=== PATIENT | female | born 1975 | race African-American/Black ===

== ENCOUNTER 2017-02-15 19:34 | Emergency (ER) | payer OTHER ==
[2017-02-15 19:41] VITALS: BP 119/82; PULSE 80; TEMP 98.2; BMI 38.7
--- NOTE | 2017-02-15 19:50 | PDOC ---
History of Present Illness - General History Source: Patient Exam Limitations: No Limitations - History of Present Illness Initial Comments: 02/15/17 22:03 The patient is a 41 year old female, with significant past medical history of knee problems, who presents to the emergency department with, right knee numbness and pain beginning a week ago. She reports the pain to be bilateral initially and pain in left knee to resolve. She reports occasional heat from her right knee. She reports using an KRISTOFER bandage for the pain, without relief. She also claims to take Advil for her pain. She reports today the swelling to go to her ankles also. She also reports intermittent chest pain which has resolved. She claims just returning from a trip to [place], via motor vehicle. She reports her symptoms to have begun prior to her trip. She also reports a weight gain of 51lbs since June and is pursuing gastric lap band surgery. She denies recent fevers, chills, headache or dizziness. She denies recent nausea, vomit, diarrhea or constipation. She denies recent dysuria, frequency, urgency or hematuria. She denies any injury, unusual activity, or change in shoes. Allergies: NKA Past surgical history: None reported. Familial: Rheumatoid Arthritis (Tested for and no abnormal finding.) Social history: Nonsmoker. Denies EtOH use and recreational drug use. <Jessica Nunez - Last Filed: 02/15/17 22:02> <Lissa Cristobal - Last Filed: 02/16/17 03:25> - General Chief Complaint: Pain Stated Complaint: BILATERAL FEET,ANKLE SWELLING, ALANA KNEE PAIN Time Seen by Provider: 02/15/17 19:49 Past History <Jessica Nunez - Last Filed: 02/15/17 22:02> - Past Medical History COPD: No Other medical history: SEASONAL ALLERGIES, HERPES LEFT HAND - Suicide/Smoking/Psychosocial Hx Smoking History: Never smoked Have you smoked in the past 12 months: No Hx Alcohol Use: (social) Substance Use Type: None <Lissa Cristobal - Last Filed: 02/16/17 03:25> - Past Medical History Allergies/Adverse Reactions: Allergies Allergy/AdvReac Type Severity Reaction Status Date / Time No Known Allergies Allergy Verified 02/15/17 19:35 Home Medications: Ambulatory Orders Ketorolac Tromethamine [Toradol] 10 mg PO TID PRN #15 tablet 11/26/17 Levocetirizine Dihydrochloride [Xyzal] 5 mg PO HS 02/15/17 Montelukast Na [Singulair -] 10 mg PO HS 02/15/17 Valacyclovir HCl [Valtrex] 1,000 mg PO DAILY 02/15/17 Review of Systems - Review of Systems Able to Perform ROS?: Yes Comments:: 02/15/17 22:03 GENERAL/CONSTITUTIONAL: No fever or chills. No weakness. HEAD, EYES, EARS, NOSE AND THROAT: No change in vision. No ear pain or discharge. No sore throat. CARDIOVASCULAR: +Chest pain. No chest pain. RESPIRATORY: No cough, wheezing, or hemoptysis. GASTROINTESTINAL: No nausea, vomiting, diarrhea or constipation. GENITOURINARY: No dysuria, frequency, or change in urination. MUSCULOSKELETAL: +Knee Pain. +Knee Swelling. +Knee numbness. No joint swelling or pain. No neck or back pain. SKIN: No rash NEUROLOGIC: No headache, vertigo, loss of consciousness, or change in strength/ sensation. ENDOCRINE: No increased thirst. No abnormal weight change. HEMATOLOGIC/LYMPHATIC: No anemia, easy bleeding, or history of blood clots. ALLERGIC/IMMUNOLOGIC: No hives or skin allergy. Is the patient limited French proficient: Yes All Other Systems: Reviewed and Negative <Jessica Nunez - Last Filed: 02/15/17 22:02> *Physical Exam - Vital Signs Last Vital Signs Temp Pulse Resp BP Pulse Ox 98.2 F 80 18 119/82 99 02/15/17 19:35 02/15/17 19:35 02/15/17 19:35 02/15/17 19:35 02/15/17 19:35 - Physical Exam Comments: 02/15/17 22:04 GENERAL: The patient is awake, alert, and fully oriented, in no acute distress. HEAD: Normal with no signs of trauma. EYES: Pupils equal, round and reactive to light, extraocular movements intact, sclera anicteric, conjunctiva clear with no pallor. ENT: Ears normal, nares patent, oropharynx clear without exudates. Moist mucous membranes. NECK: Normal range of motion, supple without lymphadenopathy, JVD, or masses. LUNGS: Breath sounds equal, clear to auscultation bilaterally. No wheeze/ crackles. HEART: Regular rate and rhythm, normal S1 and S2 without murmur or rub. ABDOMEN: Soft/nontender/nondistended. BS wnl. No guarding or rebound. No palpable masses. No hepatosplenomegaly. EXTREMITIES: +Tenderness of anterior aspect of right knee. +Medial side of tibial joint without ligamentous instability, deformity, or bruising. + Pain is refuted with extension. No posterior edema or tenderness in right or left knee. Left knee nontender with full range of motion. Bilateral ankles mild nonpitting edema without significant tenderness, deformity, or bruising. No clubbing or cyanosis. NEUROLOGICAL: Cranial nerves II through XII grossly intact. Normal speech, normal gait. PSYCH: Normal mood, normal affect. SKIN: Warm, Dry, normal turgor, no rashes or lesions noted. <Jessica Nunez - Last Filed: 02/15/17 22:02> - Vital Signs Last Vital Signs Temp Pulse Resp BP Pulse Ox 98.2 F 80 18 119/82 99 02/15/17 19:35 02/15/17 19:35 02/15/17 19:35 02/15/17 19:35 02/15/17 19:35 <Lissa Cristobal - Last Filed: 02/16/17 03:25> Medical Decision Making - Medical Decision Making Documentation has been prepared under my direction and personally reviewed by me in its entirety. I attest that this documented accurately reflects all work, treatment, procedures and medical decision making performed by me. As noted above, this 41-year-old woman presents with a few day history of worsening right knee pain associated with bilateral lower leg pain and edema. Of note, patient completed a long drive home (15 hours) yesterday from holiday weekend. Edema has increased since then. Patient has a previous history of right knee pain for which she was seen by orthopedics (Drs. Al/Amauri). She is currently investigating bariatric surgery for weight loss. Patient cannot recall any trauma or overuse involving right knee. No history of inflammation/increased warmth/erythema of the right knee or any other joint. Exam as noted. Patient had Doppler duplex ultrasound venous study of both legs to rule out DVT since she had history of prolonged automobile ride and subsequent edema/pain. Doppler study of bilateral lower extremities negative for DVT. Clinical presentation most consistent with right knee strain/sprain. Although distinct history of injury or overuse can be recalled, exam is most consistent with tenderness over the medial collateral ligament. Bilateral ankle edema may likely be related to chronic venous insufficiency. The patient states that she has been told in the past that she has been essentially sufficiency/varicose veins. She states that she cannot tolerate compression stockings although she may need to have custom-made compression stockings in the future. Patient should follow-up with her orthopedists; meanwhile, Toradol 60 mg IM will be given for analgesia/anti-inflammatory effects. Prescription for Toradol 20 mg 3 times a day as needed to be taken with food (#15)will be transmitted to her pharmacy <Lissa Cristobal - Last Filed: 02/16/17 03:25> *DC/Admit/Observation/Transfer - Attestations Scribe Attestion: 02/15/17 22:03 Documentation prepared by Jessica Nunez, acting as medical territory manager for Lissa Cristobal MD. <Jessica Nunez - Last Filed: 02/15/17 22:02> <Lissa Cristobal - Last Filed: 02/16/17 03:25> Diagnosis at time of Disposition: Right knee sprain Qualifiers: Encounter type: initial encounter Involved ligament of knee: medial collateral ligament Qualified Code(s): S83.411A - Sprain of medial collateral ligament of right knee, initial encounter - Discharge Dispostion Disposition: HOME Condition at time of disposition: Stable - Prescriptions Prescriptions: Ketorolac Tromethamine [Toradol] 10 mg PO TID PRN #15 tablet PRN Reason: Pain - Referrals Referrals: Gerhard Al MD [Staff Physician] - - Patient Instructions Printed Discharge Instructions: Knee Sprain Additional Instructions: Toradol 10 mg up to 3 times a day as needed for pain; take with food Keep legs elevated as much as possible Use flexible support/brace during day on right knee Follow-up with Drs. Al/Amauri within the next 5 days (call office tomorrow) Return to ER if you have severe pain or swelling
[2017-02-15] MEDS ORDERED: KETOROLAC TROMETHAMINE 60 MG/2 ML VIAL IM ONE (23:33)
[2017-02-15] MEDS ORDERED: KETOROLAC TROMETHAMINE 60 MG/2 ML VIAL ONE (23:34)
== END 2017-02-15 23:46 | disposition home or self-care (01) ==
LOC: FER 19:34
PROC: 2W3QX1Z Immobilization of Right Lower Leg using Splint (ICD-10-PCS; principal; 2017-02-15)
DX: S83.411A Sprain of medial collateral ligament of right knee, initial encounter (principal); X58.XXXA Exposure to other specified factors, initial encounter; Y93.89 Activity, other specified; Y92.9 Unspecified place or not applicable
CPT/HCPCS: 93970-TC; 99283-25

== ENCOUNTER 2017-02-18 19:14 | Emergency (ER) | payer OTHER ==
--- NOTE | 2017-02-18 19:19 | PDOC ---
History of Present Illness - History of Present Illness Initial Comments: The patient is a 41 year old female, with significant past medical history of knee problems and gestational diabetes, who presents to the emergency department with 8 hours of chest pain and pain at the bottom of her feet. She reports her chest pain to usually be intermittent, and radiating down to her right arm however, today it has been constant for the past 8 hours. The patient reports the chest pain to worsen with exertion, especially walking up a flight of stairs. Secondary to her chest pain, she reports nausea, sweating and shortness of breath. She reports increased thirst and diarrhea yesterday. She denies constipation or emesis. She denies recent fevers, chills, headache or dizziness. She denies recent dysuria, frequency, urgency or hematuria. She reports coming to [facility] three days ago and was treated for right knee numbness and pain. As per patients chart, she had a Doppler duplex ultrasound venous study of both legs which was negative for DVT and she was diagnosed with a right knee sprain. She also had an weight gain of 51 pounds since June. Allergies: NKA Past surgical history: None reported. Familial History: Maternal hypertension and stroke. Social history: Nonsmoker. Denies EtOH use and recreational drug use. General: No fevers or chills, no weakness, no weight loss +Diaphoresis. HEENT: No change in vision. No sore throat,. No ear pain CardioVascular: +Chest pain radiating to hands, +SOB Respiratory: No cough, or wheezing. Gastrointestinal: +Nausea. No vomiting, diarrhea or constipation, No rectal bleeding Genitourinary: No dysuria, hematuria, or frequency Musculoskeletal: +Soles of feet pain. +Knee pain. No muscle pain or swelling Neurologic: No headache, vertigo, dizziness or loss of consciousness Psychiatric: nor depression Skin: No rashes or easy bruising Endocrine: +Increased thirst. +Weight gain. Allergic: no skin or latex allergy All other systems reviewed and normal General: Well-nourished well-developed individual, no acute distress HEENT: Throat: +Mucous membrane mildly dry. Normal, tonsils normal, no erythema or exudate Neck: Supple, no meningeal signs, no lymphadenopathy Eyes: Pupils equal reactive and round, extraocular motion intact Chest: Nontender to palpation Cardiac: S1-S2 normal, regular rate and rhythm, no murmurs rubs or gallops Respiratory: Lungs clear to auscultation bilateral Abdomen: Soft, nondistended, normal bowel sounds, nontender to palpation diffusely Extremities: + Reports decreased sensation on bottoms of feet. No pain on palpations. Warm, dry, no cyanosis, clubbing, or edema Vascular: Pulses of lower extremities posterior tibial dorsalis pedis normal. Skin: No rashes Neuro: Alert and oriented x3, nonfocal exam, grossly intact, normal gait Psych: Normal mood and affect 02/18/17 20:10 <Megan Nathan - Last Filed: 02/18/17 20:10> - General History Source: Patient Exam Limitations: No Limitations - History of Present Illness Initial Comments: A portion of this note was documented by scribe services under my direction. I have reviewed the details of the note, within reason, and agree with the documentation. The case summary and management plan written by me. Medical decision making This is a 41-year-old female who comes in with several complaints her primary complaint is a burning sensation in the bottom of her feet. Patient has had a significant weight gain of 51 pounds over the last 8 months. Patient was here and evaluated for a similar complaint 3 days ago and had ultrasound Doppler of her bilateral lower extremities that were negative. Patient was told to follow- up with an orthopedist and does have an appointment for an orthopedist Her secondary complaint which is a more concerning complaint Is chest pain with associated symptoms of shortness of breath nausea and diaphoresis. Patient however has no cardiac risk factors denies any recreational drug use and does not have a family history of coronary artery disease. At the time of this evaluation patient's chest pain has been persistent for in excess of 8 hours. In addition to the chest pain patient was also complaining of some mild nausea and diarrhea intermittent 2 days. A workup was initiated including EKG, chest x-ray, CBC, comp metabolic profile, magnesium, phosphorus and cardiac enzymes. Patient was given an aspirin and some IV fluids. Chest x-ray shows no acute pathology as reviewed by me. 02/18/17 20:33 EKG shows normal sinus rhythm, normal intervals some early re-pole otherwise normal EKG no acute ST-T wave changes. EKG interpreted by 02/18/17 20:54 Patient's workup was used essentially normal with the exception of a mildly elevated white count of 15.6 but there is no left shift. Patient's platelets are also mildly elevated. Patient's sodium is a little low as well as her magnesium is 1.7 with a lower limit of normal being 1.8. Assessment and plan: This 41-year-old female comes in with multiple complaints including chest pain and burning sensation in the bottoms of her feet. Patient chest pain was most concerning of her complaints. Patient has a heart score of 3. Patient's EKG was normal her chest x-ray is normal and her troponin is negative. The etiology of patient's chest discomfort is uncertain and she was advised to follow it up with her primary care doctor if it persists and get a stress test and further evaluation by a electronics specialist Patient has been seen and evaluated for her knee pain and leg pain and foot pain. Most likely is secondary to her rapid weight gain however she does have an appointment with a orthopedist to further evaluate and determine its etiology. Patient's elevated white count is most likely secondary to her GI complaints of diarrhea with some mild nausea. Most likely viral in origin as patient is afebrile and there is no left shift Patient was discharged home told to keep her appointments and make an appointment with her primary care doctor and a electronics specialist. 02/18/17 21:00 <Quinton Li I - Last Filed: 02/18/17 21:01> - General Chief Complaint: Pain Stated Complaint: PAIN TO LOWER EXTREMITIES Time Seen by Provider: 02/18/17 19:17 Past History <Megan Nathan - Last Filed: 02/18/17 20:10> - Past Medical History COPD: No - Suicide/Smoking/Psychosocial Hx Smoking History: Never smoked Have you smoked in the past 12 months: No Hx Alcohol Use: (social) Substance Use Type: None <Quinton Li I - Last Filed: 02/18/17 21:01> - Past Medical History Allergies/Adverse Reactions: Allergies Allergy/AdvReac Type Severity Reaction Status Date / Time No Known Allergies Allergy Verified 02/15/17 19:35 Home Medications: Ambulatory Orders Ketorolac Tromethamine [Toradol] 10 mg PO TID PRN #15 tablet 02/15/17 Levocetirizine Dihydrochloride [Xyzal] 5 mg PO HS 02/15/17 Montelukast Na [Singulair -] 10 mg PO HS 02/15/17 Valacyclovir HCl [Valtrex] 1,000 mg PO DAILY 02/15/17 *Physical Exam - Vital Signs Last Vital Signs Temp Pulse Resp BP Pulse Ox 98.4 F 79 14 122/81 100 02/18/17 19:17 02/18/17 19:17 02/18/17 19:17 02/18/17 19:17 02/18/17 19:17 <Megan Nathan - Last Filed: 02/18/17 20:10> Heart Score/ECG Review - History History: Moderately suspicious - Electrocardiogram EKG: Non specific repolarization disturbance - Age Age: </= 45 - Risk Factors Risk Factors Heart Score: Yes Hx Obesity Based on the list above the patient has:: 1-2 risk factors - Troponin Troponin: </= normal limit - Score Heart Score - Total: 3 - ECG Intrepretation Rhythm: Regular Rhythm - [place]: Normal - P and VT Prominent R with upright T in V1 (true posterior RI): No Delta Wave(s) Present: No WPW: No - QRS Poor R Wave Progression: No Q Wave Present: No - ST and T Early Repolarization: Yes Non Specific ST-T Wave changes: No Flattened T Waves: No Prolonged Q-T Interval: No - ECG Impressions Normal ECG: Yes Bradycardia: No Torsades candie Pointes: No WPW: No <Quinton Li I - Last Filed: 02/18/17 21:01> ED Treatment Course - LABORATORY CBC & Chemistry Diagram: 02/18/17 19:44 02/18/17 19:44 - Medications Given in the ED: ED Medications Discontinued Medications Generic Name Dose Route Start Last Admin Trade Name Freq PRN Reason Stop Dose Admin Aspirin 162 mg 02/18/17 19:38 02/18/17 19:45 Asa - PO 02/18/17 19:39 162 mg ONCE ONE Administration <Megan Nathan - Last Filed: 02/18/17 20:10> - LABORATORY CBC & Chemistry Diagram: 02/18/17 19:44 02/18/17 19:44 <Quinton Li I - Last Filed: 02/18/17 21:01> *DC/Admit/Observation/Transfer - Attestations Scribe Attestion: 02/18/17 19:58 Documentation prepared by Megan Nathan, acting as biomedical equipment technician for Quinton Li MD. <Megan Nathan - Last Filed: 02/18/17 20:10> - Discharge Dispostion Admit: No <Quinton Li I - Last Filed: 02/18/17 21:01> Diagnosis at time of Disposition: Foot pain, bilateral Chest pain Qualifiers: Chest pain type: unspecified Qualified Code(s): R07.9 - Chest pain, unspecified - Discharge Dispostion Disposition: HOME Condition at time of disposition: Stable - Patient Instructions Additional Instructions: Your workup for serious causes of your chest pain was negative. Your being discharged however if the chest pain persists and continues you should follow up with your primary care doctor as well as a electronics specialist for a possible stress test. Keep your appointment with your orthopedist regarding your knee pain and foot pain. Continue to take the Toradol that you were given for the pain as needed. Return to the emergency department immediately with ANY new, persistent or worsening symptoms. Continue any medications as previously prescribed by your physician. You should follow up with your primary doctor as soon as possible regarding today's emergency department visit. . Please make sure your doctor reviews the results of your emergency evaluation. Thank you for coming to the Emergency Department today for your care. It was a pleasure to see you today. Please note that your evaluation is INCOMPLETE until you follow-up with your doctor.
[2017-02-18 19:20] VITALS: BP 122/81; PULSE 79; TEMP 98.4; BMI 39.6
[2017-02-18] MEDS ORDERED: ASPIRIN 81 MG CHEWABLE TABLETS PO ONE (19:38)
[2017-02-18] MEDS ORDERED: SODIUM CHLORIDE 1,000 ML IV ONE (19:42)
[2017-02-18] MEDS ORDERED: ASPIRIN 81 MG CHEWABLE TABLETS ONE (19:46)
[2017-02-18 20:02] LABS: URINE APPEARANCE Clear; URINE BILIRUBIN Negative (NEGATIVE); URINE GLUCOSE (UA) Negative (NEGATIVE); URINE KETONE Negative (NEGATIVE); URINE NITRITE Negative (NEGATIVE); URINE PROTEIN Negative (NEGATIVE); URINE UROBILINOGEN 0.2 (0.2-1.0)
[2017-02-18 20:03] LABS: BASOPHIL 3.5 % (0-2.0); EOSINOPHIL 2.1 % (0-4.5); MCH 28.3 pg (25.7-33.7); MEAN CELL VOLUME 85.7 fl (80-96); MEAN PLT VOLUME 9.5 fl (7.5-11.1); NEUTROPHILS 56.1 % (42.8-82.8); PLATELET COUNT 682 K/MM3 (134-434); RDW 13.6 % (11.6-15.6); WHITE BLOOD COUNT 15.6 K/mm3 (4.0-10.8)
[2017-02-18 20:06] LABS: URINE BLOOD Trace-intact (NEGATIVE); URINE COLOR YELLOW; URINE LEUK ESTERASE TRACE (NEGATIVE)
[2017-02-18 20:08] LABS: ALBUMIN 3.7 g/dl (3.5-5.0); ALK PHOS 45 U/L (32-92); ANION GAP 4 (8-16); BILIRUBIN,TOTAL 0.5 mg/dl (0.2-1.0); CALCIUM 9.4 mg/dl (8.4-10.2); CO2 27 mmol/L (22-28); GLUCOSE,RANDOM 89 mg/dl (74-106); MAGNESIUM 1.7 mg/dL (1.8-2.4); PHOSPHOROUS 3.9 mg/dl (2.5-4.6); SGOT/AST 20 U/L (10-42); SGPT/ALT 18 U/L (10-40); TOT PROT 7.3 g/dl (6.4-8.3)
[2017-02-18 20:09] LABS: CPK 127 IU/L (26-192)
[2017-02-18 20:26] LABS: TROPONIN I (DFP) < 0.03 ng/ml (0.03-0.50)
[2017-02-18 22:21] LABS: URINE BACTERIA FEW /hpf (NEGATIVE); URINE RBC 0-2 /hpf (0-3)
--- NOTE | 2017-02-19 18:52 | EKG ---
Test Reason : Blood Pressure : / mmHG Vent. Rate : 077 BPM Atrial Rate : 077 BPM P-R Int : 140 ms QRS Dur : 078 ms QT Int : 368 ms P-R-T Axes : 056 072 024 degrees QTc Int : 416 ms NORMAL SINUS RHYTHM EARLY REPOLARIZATION NORMAL ECG NO PREVIOUS ECGS AVAILABLE Confirmed by ELLA VIVAR MD ([id number] on 02/19/2017 6:51:46 PM Referred By: Confirmed By:ELLA VIVAR MD
== END 2017-02-18 21:22 | disposition home or self-care (01) ==
LOC: FER 19:14
PROC: 3E0337Z Introduction of Electrolytic and Water Balance Substance into Peripheral Vein, Percutaneous Approach (ICD-10-PCS; principal; 2017-02-18)
DX: R07.9 Chest pain, unspecified (principal); M79.671 Pain in right foot; M79.672 Pain in left foot
CPT/HCPCS: 36415; 71010-TC; 80053; 81003; 81015; 82550; 83735; 84100; 84484; 84703; 85025; 93005; 99284-25